=== PATIENT | female | born 1965 | race Caucasian/White ===

== ENCOUNTER → 2020-07-22 | Outpatient (CLI) | payer MEDICAID ==
[~2020-07-22] MED LIST: ARIPIPRAZOLE5 MG PO; BENTYL 10 MG CA10 M1 PO; DUEXIS 800-26.1 EACH PO; LASIX 20 MG TAB20 MG PO; LOMOTIL TABLET1 EACH PO; NORCO 5-325 TA1 EAC1 PO; PRAZOSIN HCL5 MG PO; REMERON15 MG PO; ROBAXIN 750 MG750 M1 PO; VIBERZI100 MG PO
== END ==
LOC: M.RAD 10:59
PROVIDERS: ATTEND Student in an Organized Health Care Education/Training Program
DX: Z12.31 Encounter for screening mammogram for malignant neoplasm of breast (principal)